=== PATIENT | female | born 1995 | race Caucasian/White ===

== ENCOUNTER → 2018-03-05 | Outpatient (CLI) | payer BC ==
[~2018-03-05] MED LIST: BCPILLS PO; CYAN100T PO; GABA-112 PO; MAGN400T6 PO; MELA1TAB5 PO; OPTIRAY 320 IV PRN; RIZA10TA19 PO
--- NOTE | 2018-03-05 11:51 | DIAGNOSTIC IMAGING REPORT ---
ABD/PELVIS IV AND ORAL CONT CLINICAL HISTORY: 22 years-old Female presenting with Z83.79 Family history of ulcerative colitis Z83.79 Family history of Crohn's disease, presenting with abdominal pain. TECHNIQUE: Multidetector CT of the abdomen and pelvis was performed after the administration of oral and intravenous contrast. IV contrast: 93 mL of Optiray 320. A dose lowering technique was used consistent with the principles of ALARA (as low as reasonably achievable). COMPARISON: None. CT DOSE (mGy.cm): The estimated cumulative dose is 304.07 mGy.cm. FINDINGS: Log Hooker topogram: Unremarkable. Lung bases: Minimal basilar opacities, likely atelectasis. Normal heart size. No pericardial or pleural effusion. Liver: Normal morphology. Focal hypodensity along the fissure for the ligamentum teres, either focal fat, perfusional variation, or a hepatic cyst. Patent hepatic vasculature. Biliary: No intrahepatic or extrahepatic biliary ductal dilatation. Normal gallbladder. Pancreas: Normal. Spleen: Normal. Adrenal glands: Normal. Kidneys and ureters: Duplicated right renal collecting system. No nephrolithiasis. No hydronephrosis. Nondistended ureters. Bladder: Incompletely evaluated secondary to underdistention. Pelvic organs: Uterus and ovaries normal. Bowel: Normal appendix. No bowel obstruction. Peritoneal cavity: No free fluid or intraperitoneal gas. Lymph nodes: No enlarged lymph nodes in the abdomen or pelvis. Vasculature: Aorta and IVC patent and normal in caliber. Abdominal wall: Normal. Musculoskeletal: Normal. IMPRESSION: 1. No acute intra-abdominal pathology. Electronically signed by: Wally Gerardo M.D. 03/05/2018 11:50 AM Dictated Date/Time: 03/05/2018 11:42 AM
== END | disposition home or self-care (01) ==
LOC: C.CTS 11:16
PROVIDERS: ATTEND Registered Nurse
DX: R63.4 Abnormal weight loss (principal); R11.11 Vomiting without nausea; Z83.79 Family history of other diseases of the digestive system